=== PATIENT | female | born 1965 | race Caucasian/White ===

== ENCOUNTER → 2016-07-01 | Outpatient (CLI) | payer OTHER ==
[~2016-07-01] MED LIST: AMOXICILLIN500 MG PO; CLARITHROMYCIN500 MG PO; ELAVIL25 MG PO; MECLIZINE HCL25 MG PO; NABUMETONE500 MG PO; NEXIUM40 MG PO; PERCOCET 5/31 TABLET PO; PREVACID30 MG PO; TEGRETOL-XR,CA100 MG PO; ZOMIG5 MG PO
== END | disposition home or self-care (01) ==
LOC: NUC 06:41
DX: R14.0 Abdominal distension (gaseous) (principal)
CPT/HCPCS: 78264; A9541